=== PATIENT | female | born 2005 | race African-American/Black ===

== ENCOUNTER 2025-05-11 16:21 | Emergency (ER) | payer OTHER ==
[~2025-05-11] VITALS: Ht 149.9 cm; Wt 49.6 kg
[~2025-05-11 16:21] MED LIST: RIZA10TA64 PO
[2025-05-11 18:12] LABS: Trichomonas vaginalis (AMP) NOT DETECTED (NEGATIVE)
[2025-05-11 18:35] LABS: GC DNA AMPLIFICATION NEGATIVE (NEGATIVE)
[2025-05-11] MEDS: KETOROLAC 30 MG/ML 1 ML VIAL IV ONE (21:25)
[2025-05-11] MEDS: NS (Normal Saline) 0.9% 1,000 ML IV ONE (21:25)
[2025-05-11] MEDS: diphenhydrAMINE 50 MG/ML VIAL IV ONE (21:25)
[2025-05-11 23:30] VITALS: BP 98/54; TEMP 98.9; O2SAT 100
== END 2025-05-11 23:30 | disposition home or self-care (01) ==
LOC: M ED 16:21
DX: G43.909 Migraine, unspecified, not intractable, without status migrainosus (principal); Z88.8 Allergy status to other drugs, medicaments and biological substances; Z79.899 Other long term (current) drug therapy
CPT/HCPCS: 87210; 87661; 87810; 87850; 96361; 96374; 99284; J1200; J1885; J2765